=== PATIENT | male | born 1965 | race African-American/Black ===

== ENCOUNTER 2021-04-07 11:14 | Emergency (ER) | payer SELFPAY ==
[~2021-04-07] VITALS: Ht 172.7 cm; Wt 89.0 kg
[2021-04-07] MEDS ORDERED: KETOROLAC 30MG/ML VIAL IV ONE (13:00)
[2021-04-07] MEDS ORDERED: CLINDAMYCIN HCL 150MG CAPSULE PO ONE (13:00)
[2021-04-07 13:12] VITALS: BP 121/78
[2021-04-07] MEDS ORDERED: CLIN300C12 MT (13:30)
[2021-04-07] MEDS ORDERED: OXYC-100 MT (14:24)
== END 2021-04-07 14:55 | disposition home or self-care (01) ==
LOC: ER 11:14
DX: K04.7 Periapical abscess without sinus (principal); K02.9 Dental caries, unspecified; R03.0 Elevated blood-pressure reading, without diagnosis of hypertension
CPT/HCPCS: 96374; 99283; J1885